=== PATIENT | female | born 1985 | race Caucasian/White ===

== ENCOUNTER → 2017-12-03 | Outpatient (CLI) | payer SELFPAY ==
[2017-12-03 13:06] LABS: BASO # 0.1 (0.0-0.2); BASO % 0.8 % (0.0-2.0); EOS # 0.1 (0.0-0.7); EOS % 2.2 % (0-4.0); GRAN # 3.7 (1.4-6.5); GRAN % 59.2 % (42.2-75.2); HEMATOCRIT 42.9 % (37.0-47.0); HEMOGLOBIN 14.7 g/dl (12.5-16.0); LYMPH # 1.7 (1.2-3.4); LYMPH % 27.6 % (20.0-51.0); MEAN CELL VOLUME 88 fl (80.0-100.0); MEAN CORPUSCULAR HEMOGLOBIN 30 pg (27.0-31.0); MEAN CORPUSCULAR HGB CONC 34 g/dl (33.0-37.0); MEAN PLATELET VOLUME 9.4 fl (7.4-10.4); MONO # 0.6 (0.1-0.6); PLATELET COUNT 326 K/mm3 (130-400); RED BLOOD COUNT 4.88 M/mm3 (4.10-5.30); REDCELL DISTRIBUTION WIDTH-CV 13.1 % (11.5-14.5)
[2017-12-03 13:11] LABS: ALBUMIN 4.4 gm/dL (3.5-5.0); BILIRUBIN,TOTAL 0.6 mg/dL (0.0-1.0); CREATININE, serum 0.56 mg/dL (0.52-1.25); POTASSIUM 5.3 mmol/L (3.4-5.0); TOTAL PROTEIN 7.9 gm/dL (6.4-8.2)
== END ==
LOC: COL.LAB 12:20
PROVIDERS: Nurse Practitioner Family
DX: R10.9 Unspecified abdominal pain (principal)

== ENCOUNTER 2021-12-27 16:10 | Outpatient (CLI) | payer SELFPAY ==
[~2021-12-27] VITALS: Ht 165.1 cm; Wt 78.6 kg
--- NOTE | 2021-12-27 16:40 | NUR ---
Patient ambulatory to LR5 with significant other, changed into gown, FHR/TOCO monitors placed and explained. Patient states "I was at office and seen with Dr. Hanley this morning, he told me I had some wet discharge and didnt like the color of it and to come to hospital to get it checked out at 4:00pm". Patient states she has been freya this morning. Denies any vaginal bleeding or decreased movement. Plan of care discussed. SVE- unable to reach cervix and amniotest negative- some white discharge noted on glove.
[2021-12-27] MEDS ORDERED: PRENATAL MVI (17:01)
[2021-12-27 17:23] VITALS: BP 123/71; PULSE 73; TEMP 99.1
[2021-12-27 17:45] VITALS: BP 106/54; PULSE 65
--- NOTE | 2021-12-27 17:45 | NUR ---
Patient given discharge instructions and patient verbalizes understanding, questions answered. Patient off monitors. 1750: Patient ambulates off unit with significant other.
== END 2021-12-27 17:50 | disposition home or self-care (01) ==
LOC: LDRO 16:10
DX: O47.03 False labor before 37 completed weeks of gestation, third trimester (principal); Z3A.39 39 weeks gestation of pregnancy

== ENCOUNTER 2021-12-28 10:58 | Outpatient (CLI) | payer SELFPAY ==
[~2021-12-28] VITALS: Ht 165.1 cm; Wt 78.6 kg
[~2021-12-28 10:58] MED LIST: PRENATAL MVI
--- NOTE | 2021-12-28 11:10 | NUR ---
1110-Patient to LR 6 with complaints of contractons since 0430. Denies LOF or vaginal bleeding. Reports good movenent but decreased from baseline. Placed on EFM, VSS. SVE difficult to perform. Patient tense, Charge nurse SUGAR Galloway attempts SVE. Closed cervix, 1128-Dr. Hanley updated. See MD notification.
[2021-12-28 12:00] VITALS: BP 116/70; PULSE 76; TEMP 98.2
[2021-12-28 12:30] VITALS: BP 100/58; PULSE 77
[2021-12-29] MEDS ORDERED: IBU800 M1 PO (10:58)
== END 2021-12-28 12:35 | disposition home or self-care (01) ==
LOC: LDRO 10:58
DX: Z34.93 Encounter for supervision of normal pregnancy, unspecified, third trimester (principal); Z3A.39 39 weeks gestation of pregnancy

== ENCOUNTER 2021-12-28 18:00 | Inpatient (IN) | payer SELFPAY ==
[2021-12-28] VITALS (9 sets, daily range): BP systolic 103–148; BP diastolic 56–70; PULSE 68–92; TEMP 98–98.5
[~2021-12-28] VITALS: Ht 165.1 cm; Wt 78.6 kg
--- NOTE | 2021-12-28 18:14 | NUR ---
181-39.2 week Patient G2L1 patient returns to unit after being discharged earlier this afternoon for a labor check. She is now reporting leaking of fluid and painful contractions. Amnitest + and SVE 3-/-1. FHR Category I. Dr. Van notified. Orders to admit patient recieved. Leatha LUNA notified of patients desire for epidural. 1829-IV to right hand by SUGAR Galloway. Blood collected and sent to lab, LR fluid bolus started. Reported off to SUGAR Ayala.
[2021-12-28 18:43] LABS: BASO % 0.4 % (0.0-2.0); EOS % 0.2 % (0.0-4.0); GRAN # 7.8 K/mm3 (1.4-6.5); GRAN % 77.3 % (42.2-75.2); HEMOGLOBIN 12.1 g/dl (12.5-16.0); LYMPH # 1.5 K/mm3 (1.2-3.4); LYMPH % 15.3 % (20.0-51.0); MEAN CELL VOLUME 90 fl (80.0-100.0); MEAN CORPUSCULAR HEMOGLOBIN 30 pg (27-31); MEAN CORPUSCULAR HGB CONC 33 g/dl (33.0-37.0); MEAN PLATELET VOLUME 10.5 fl (7.4-10.4); MONO # 0.7 K/mm3 (0.1-0.6); MONO % 6.5 % (1.7-9.3); PLATELET COUNT 226 K/mm3 (130-400); RED BLOOD COUNT 4.04 M/mm3 (4.10-5.30); REDCELL DISTRIBUTION WIDTH-CV 13.6 % (11.5-14.5)
[2021-12-28 18:55] LABS: HEMATOCRIT 36.5 % (37.0-47.0)
--- NOTE | 2021-12-28 19:55 | NUR ---
1901- DR. BURRELL IN ROOM FOR DELIVERY. BED BROKEN DOWN FOR DELIVERY. 1904- PT COACHED BY THIS NURSE ON POSITION AND PUSHING, UNDERSTANDING VERBALIZED. PT BEGINS PUSHING WITH DR. BURRELL. 1914- THIS NURSE CONTINUES TO FEATHER STITCHER PT ON PUSHING TECHNIQUE, UNDERSTANDING VERBALIZED. 1925- SPONTANEOUS VAGINAL DELIVERY OF VIABLE BABY GIRL. BABY TO MOTHER'S ABDOMEN, CORD CLAMPED BY DR. BURRELL, CUT BY PT'S [id number]. BABY CARES ASSUMED BY Pratima AVELAR RN. 1928- SPONTANEOUS DELIVERY OF INTACT PLACENTA. IV DC'D BY MISTAKE DURING DELIVERY. DR. BURRELL DECLINE IM PITOCIN AT THIS TIME. 1937- DR. BURRELL ORDERS IM METHERGINE AT THIS TIME DUE TO FREE FLOW. IM METHERGINE 0.2MG GIVEN IN LEFT THIGH. PT TOLERATED WELL. DR. BURRELL REPAIRS 2ND DEGREE LACERATION. 1954- RECOVERY STARTED.
--- NOTE | 2021-12-28 22:15 | NUR ---
PT UP TO BATHROOM FOLLOWING DELIVERY. UNABLE TO VOID AT THIS TIME. ENCOURAGED PT TO PUSH FLUIDS, UNDERSTANDING VERBALIZED. ASSISTED WITH PERICARE. PERIPAD, ICE PACK AND MESH UNDERWEAR ON. PT ABLE TO AMBULATE TO ROOM WITHOUT DIFFICULTY.
--- NOTE | 2021-12-29 00:25 | NUR ---
0005-PT SLEEPY AND REQUESTED BABY BE TAKEN TO NURSERY. PT DENIES OTHER NEEDS AT THIS TIME.
[2021-12-29 04:54] VITALS: BP 110/78; PULSE 60; TEMP 98.4
[2021-12-29 07:49] VITALS: BP 97/68; PULSE 67; TEMP 96.7
[2021-12-29] MEDS ORDERED: IBU800 M1 PO (10:58)
--- NOTE | 2021-12-29 13:21 | NUR ---
Hired Hand stopped by but patient spoke Guinean. Hired Hand was not able to communicate.
[2021-12-29 17:00] VITALS: BP 105/56; PULSE 70; TEMP 97.6
[2021-12-29 18:30] VITALS: BP 97/54; PULSE 75; TEMP 97.7
[2021-12-30 08:30] VITALS: BP 108/66; PULSE 65; TEMP 97.7
--- NOTE | 2021-12-30 14:14 | NUR ---
DISCHARGE TEACHING COMPLETED. EDUCATED TO MAKE 6 WEEK APPOINTMENT BY CALLING OFFICE ON FRIDAY. EDUCATION ON PRESCRIPTION PROVIDED. QUESTIONS INVITED AND ANSWERED.
== END 2021-12-30 14:25 | disposition home or self-care (01) | DRG 807 ==
LOC: LDRO 18:00 → LDR 18:14 → OB 22:15
PROVIDERS: ADMIT Obstetrics & Gynecology
PROC: 10E0XZZ Delivery of Products of Conception, External Approach (ICD-10-PCS; principal; 2021-12-28)
PROC: 0KQM0ZZ Repair Perineum Muscle, Open Approach (ICD-10-PCS; 2021-12-28)
DX: O92.29 Other disorders of breast associated with pregnancy and the puerperium (principal); Z37.0 Single live birth; O70.1 Second degree perineal laceration during delivery; Z3A.39 39 weeks gestation of pregnancy; O75.89 Other specified complications of labor and delivery
CPT/HCPCS: J2210; J7120